=== PATIENT | male | born 1950 | race Two or more races ===

== ENCOUNTER → 2022-05-11 | Outpatient (CLI) | payer MEDICARE, OTHER ==
[~2022-05-11] VITALS: Ht 165.1 cm; Wt 72.6 kg
[~2022-05-11] MED LIST: ADENOSINE 61 MG in GIVE UN-DILUTED 0 ML IV ONE; ADENOSINE 90 MG/30 ML INJ IV ONE
== END | disposition home or self-care (01) ==
LOC: Rad HDHVI 08:50
PROVIDERS: ATTEND Internal Medicine Cardiovascular Disease
DX: I10 Essential (primary) hypertension (principal); E78.5 Hyperlipidemia, unspecified; E11.9 Type 2 diabetes mellitus without complications; Z82.49 Family history of ischemic heart disease and other diseases of the circulatory system; Z79.84 Long term (current) use of oral hypoglycemic drugs; Z79.899 Other long term (current) drug therapy
CPT/HCPCS: 78452; 93005; 96374; 96375; A9500; J0153

== ENCOUNTER → 2022-05-20 | Outpatient (CLI) | payer MEDICARE, OTHER | END | disposition home or self-care (01) | LOC: Rad HDHVI 09:55 | PROVIDERS: ATTEND Internal Medicine Cardiovascular Disease | DX: I10 Essential (primary) hypertension (principal); R42 Dizziness and giddiness; R55 Syncope and collapse; E78.5 Hyperlipidemia, unspecified | CPT/HCPCS: 93880 ==

== ENCOUNTER 2022-08-06 07:47 | Inpatient (IN) | payer MEDICARE, OTHER ==
[2022-08-03 12:07] LABS: Basophils # (auto) 0.1 10 ^3/uL (0-0.2); Basophils % (auto) 1.4 % (0.0-2.0); Eosinophils # (auto) 0.6 10 ^3/uL (0-0.8); Eosinophils % (auto) 7.5 % (0.0-7.0); Hematocrit 37.1 % (41.0-53.0); Hemoglobin 12.7 g/dL (13.5-17.5); Lymphocytes # (auto) 1.9 10 ^3/uL (0.4-5.4); Lymphocytes % (auto) 25.3 % (10.0-50.0); Mean Corpuscular Hemoglobin 30.6 pg (28.0-32.0); Mean Corpuscular Hgb Conc. 34.3 g/dL (32.0-36.0); Mean Corpuscular Volume 89.1 fL (80.0-100.0); Monocytes # (auto) 0.7 10 ^3/uL (0-1.3); Monocytes % (auto) 9.2 % (0.0-12.0); Neutrophils # (auto) 4.2 10 ^3/uL (1.6-8.6); Neutrophils % (auto) 56.6 % (37.0-80.0); Nucleated Red Blood Cells % 0.1 %; Red Blood Cells 4.16 10^6/uL (4.5-5.90); Red Cell Distribution Width 14.3 % (11.8-14.3); White Blood Cell 7.5 10^3/uL (4.4-10.8)
[2022-08-03 12:27] LABS: Partial Thromboplastin Time 29.2 sec (24.6-33.4)
[2022-08-03 12:46] LABS: Calcium 9.2 mg/dL (8.5-10.1); Potassium 4.7 mmol/L (3.5-5.1)
[2022-08-03 12:49] LABS: BUN/Creatinine Ratio 16.2 (10.0-20.0)
[~2022-08-06] VITALS: Ht 165.1 cm; Wt 70.3 kg
[2022-08-06] VITALS (9 sets, daily range): BP systolic 142–170; BP diastolic 68–97
[~2022-08-06 07:47] MED LIST changes: +ACAR50TA2 PO; +ADAL40KI SC; -ADENOSINE 61 MG in GIVE UN-DILUTED 0 ML IV ONE; -ADENOSINE 90 MG/30 ML INJ IV ONE; +AMLO-496 PO; +ASPI-543 PO; +FOLI1TAB6 PO; +GABA-339 PO; +GLIP10TA9 PO; +HYDR-4902 PO; +LEVO112T4 PO; +LISI20TA28 PO; +METF-370 PO; +METH2.5T PO; +METO25TA5 PO; +POM; +PRAV20TA3 PO
[2022-08-06] MEDS ORDERED: ANGIOMAX 250 MG VIAL IV ONE (12:34)
[2022-08-06] MEDS ORDERED: SODIUM CHL 0.9% 50 ML ONE (12:34)
[2022-08-06] MEDS ORDERED: GLYCOPYRROLATE 0.2 MG/ML 1ML VIAL ONE ×2 (12:35→12:48)
[2022-08-06] MEDS ORDERED: PHENYLEPHRINE IV 0 ML IV ONE (12:35)
[2022-08-06] MEDS ORDERED: LIDOCAINE 2%HCL (LOCAL ANESTH.) INJ 20ML MDV ONE (12:37)
[2022-08-06] MEDS ORDERED: IOHEXOL 350 MG/ML 100ML IJ ONE (12:37)
[2022-08-06] MEDS ORDERED: TICAGRELOR 90 MG TAB ONE (13:24)
[2022-08-06] MEDS ORDERED: MORPHINE SULFATE INJ 2 MG/ml SYRG IV PRN (13:45)
[2022-08-06] MEDS ORDERED: NITROGLYCERIN 0.4 MG SL TAB SL PRN (13:45)
[2022-08-06] MEDS ORDERED: HYDROcodone-ACET 5/325MG TAB PO PRN (15:30)
[2022-08-06] MEDS ORDERED: DEXTROSE (50%) 50ML SYRG IV PRN (15:45)
[2022-08-06] MEDS: ACCU-CHEK COMFORT CURVE STRIP VI SCH ×3 (17:00→22:00)
[2022-08-06] MEDS: InsuLIN REG 1unit/0.01ml Soln (100units/ml) SC SCH (17:00)
[2022-08-06] MEDS: GABAPENTIN 300 MG CAP PO SCH ×2 (18:14→20:57)
[2022-08-06] MEDS: TICAGRELOR 90 MG TAB PO SCH (20:57)
[2022-08-06] MEDS ORDERED: InsuLIN REG 1unit/0.01ml Soln (100units/ml) SC SCH (22:00)
[2022-08-06] MEDS ORDERED: cloNIDine HCL 0.1 MG TAB PO PRN (22:30)
[2022-08-07 05:00] VITALS: BP 128/69
[2022-08-07] MEDS: GABAPENTIN 300 MG CAP PO SCH (05:02)
[2022-08-07] MEDS: ACCU-CHEK COMFORT CURVE STRIP VI SCH ×2 (05:22→11:30)
[2022-08-07] MEDS: InsuLIN REG 1unit/0.01ml Soln (100units/ml) SC SCH ×2 (05:23→11:30)
[2022-08-07 06:34] LABS: Basophils # (auto) 0.1 10 ^3/uL (0-0.2); Eosinophils # (auto) 0.3 10 ^3/uL (0-0.8); Eosinophils % (auto) 3.7 % (0.0-7.0); Hematocrit 40.3 % (41.0-53.0); Hemoglobin 13.6 g/dL (13.5-17.5); Lymphocytes # (auto) 1.5 10 ^3/uL (0.4-5.4); Lymphocytes % (auto) 16.7 % (10.0-50.0); Mean Corpuscular Hemoglobin 30.2 pg (28.0-32.0); Mean Corpuscular Hgb Conc. 33.7 g/dL (32.0-36.0); Mean Corpuscular Volume 89.8 fL (80.0-100.0); Monocytes # (auto) 1.1 10 ^3/uL (0-1.3); Monocytes % (auto) 12.6 % (0.0-12.0); Neutrophils # (auto) 5.8 10 ^3/uL (1.6-8.6); Nucleated Red Blood Cells % 0.2 %; Red Blood Cells 4.49 10^6/uL (4.5-5.90); Red Cell Distribution Width 14.8 % (11.8-14.3); White Blood Cell 8.8 10^3/uL (4.4-10.8)
[2022-08-07 06:49] LABS: Potassium 4.6 mmol/L (3.5-5.1)
[2022-08-07 06:58] LABS: Albumin 3.8 g/dL (3.4-5.0); BUN/Creatinine Ratio 17.6 (10.0-20.0); Calcium 9.5 mg/dL (8.5-10.1); Total Protein 8.3 g/dL (6.4-8.2)
[2022-08-07 07:00] LABS: Bilirubin, Total 0.6 mg/dL (0.2-1.0)
[2022-08-07] MEDS ORDERED: LEVOTHYROXINE SODIUM 112 MCG TAB PO SCH (07:00)
[2022-08-07] MEDS ORDERED: METHOTREXATE 2.5 MG TAB PO SCH (08:00)
[2022-08-07 09:00] VITALS: BP 134/87
[2022-08-07] MEDS: TICAGRELOR 90 MG TAB PO SCH (09:46)
[2022-08-07] MEDS ORDERED: PRAVASTATIN SODIUM 20 MG TAB PO SCH (10:00)
[2022-08-07] MEDS ORDERED: amLODIPine BESYLATE 5 MG TAB PO SCH (10:00)
[2022-08-07] MEDS ORDERED: ASPirin-EC 81 mg tab PO SCH (10:00)
[2022-08-07] MEDS ORDERED: METOPROLOL SUCCINATE XL 50 MG TAB PO SCH (10:00)
[2022-08-07] MEDS ORDERED: FOLIC ACID 1 MG TAB PO SCH (10:00)
[2022-08-07] MEDS ORDERED: LISINOPRIL 20 MG TAB PO SCH (10:00)
[2022-08-07 12:40] VITALS: BP 121/67
[2022-08-07] MEDS ORDERED: GABAPENTIN 300 MG CAP PO SCH (14:00)
[2022-08-07 16:12] VITALS: BP 134/87
[2022-08-07 17:00] VITALS: BP 148/71
== END 2022-08-07 18:00 | disposition home or self-care (01) | DRG 36 ==
LOC: CATH 07:47 → TELE-WESTW 13:34
PROVIDERS: ADMIT Internal Medicine Cardiovascular Disease; ATTEND Internal Medicine Cardiovascular Disease
PROC: 037L3DZ Dilation of Left Internal Carotid Artery with Intraluminal Device, Percutaneous Approach (ICD-10-PCS; principal; 2022-08-06)
PROC: B31C1ZZ Fluoroscopy of Bilateral External Carotid Arteries using Low Osmolar Contrast (ICD-10-PCS; 2022-08-06)
PROC: B31G1ZZ Fluoroscopy of Bilateral Vertebral Arteries using Low Osmolar Contrast (ICD-10-PCS; 2022-08-06)
PROC: B3181ZZ Fluoroscopy of Bilateral Internal Carotid Arteries using Low Osmolar Contrast (ICD-10-PCS; 2022-08-06)
PROC: B3151ZZ Fluoroscopy of Bilateral Common Carotid Arteries using Low Osmolar Contrast (ICD-10-PCS; 2022-08-06)
DX: I65.22 Occlusion and stenosis of left carotid artery (principal); E78.5 Hyperlipidemia, unspecified; I10 Essential (primary) hypertension; E11.40 Type 2 diabetes mellitus with diabetic neuropathy, unspecified; J44.9 Chronic obstructive pulmonary disease, unspecified; Z82.49 Family history of ischemic heart disease and other diseases of the circulatory system; Z86.73 Personal history of transient ischemic attack (TIA), and cerebral infarction without residual deficits; Z87.891 Personal history of nicotine dependence; Z88.0 Allergy status to penicillin
CPT/HCPCS: 36224; 36227; 36415; 80048; 80053; 82962; 85025; 85610; 85730; 96374; 96375; G0378

== ENCOUNTER 2022-09-21 15:55 | Emergency (ER) | payer MEDICARE, OTHER ==
[~2022-09-21] VITALS: Ht 165.1 cm; Wt 73.6 kg
[~2022-09-21 15:55] MED LIST changes: -AMLO-496 PO; +AMLO1TAB23 PO; +FOLI-119 PO; -FOLI1TAB6 PO; -LISI20TA28 PO; +LISI20TA56 PO
[2022-09-21 16:53] LABS: Basophils # (auto) 0.1 10 ^3/uL (0-0.2); Basophils % (auto) 1.6 % (0.0-2.0); Eosinophils # (auto) 0.4 10 ^3/uL (0-0.8); Eosinophils % (auto) 6.4 % (0.0-7.0); Hematocrit 34.8 % (41.0-53.0); Hemoglobin 11.4 g/dL (13.5-17.5); Lymphocytes # (auto) 1.2 10 ^3/uL (0.4-5.4); Lymphocytes % (auto) 20.1 % (10.0-50.0); Mean Corpuscular Hemoglobin 30.1 pg (28.0-32.0); Mean Corpuscular Hgb Conc. 32.9 g/dL (32.0-36.0); Mean Corpuscular Volume 91.6 fL (80.0-100.0); Monocytes # (auto) 0.8 10 ^3/uL (0-1.3); Monocytes % (auto) 12.8 % (0.0-12.0); Neutrophils # (auto) 3.6 10 ^3/uL (1.6-8.6); Neutrophils % (auto) 59.1 % (37.0-80.0); Nucleated Red Blood Cells % 0.1 %; Red Blood Cells 3.79 10^6/uL (4.5-5.90); Red Cell Distribution Width 14.9 % (11.8-14.3); White Blood Cell 6.1 10^3/uL (4.4-10.8)
[2022-09-21 17:10] LABS: Albumin 4.1 g/dL (3.4-5.0); Potassium 5.1 mmol/L (3.5-5.1)
[2022-09-21 17:14] LABS: BUN/Creatinine Ratio 14.8 (10.0-20.0); Bilirubin, Total 0.2 mg/dL (0.2-1.0); Total Protein 8.2 g/dL (6.4-8.2)
[2022-09-21 19:40] VITALS: BP 154/92
== END 2022-09-21 19:42 | disposition home or self-care (01) ==
LOC: ER 15:55
DX: R53.1 Weakness (principal); E11.9 Type 2 diabetes mellitus without complications; E78.5 Hyperlipidemia, unspecified; I10 Essential (primary) hypertension; Z88.0 Allergy status to penicillin; Z79.899 Other long term (current) drug therapy; Z90.89 Acquired absence of other organs; Z98.890 Other specified postprocedural states
CPT/HCPCS: 36415; 80053; 84484; 85025; 93005

== ENCOUNTER → 2023-01-11 | Outpatient (CLI) | payer MEDICARE, OTHER | END | disposition home or self-care (01) | LOC: Rad HDHVI 12:56 | PROVIDERS: ATTEND Internal Medicine Cardiovascular Disease | DX: L98.499 Non-pressure chronic ulcer of skin of other sites with unspecified severity (principal) | CPT/HCPCS: 93925 ==

== ENCOUNTER → 2023-02-15 | Outpatient (CLI) | payer MEDICARE, OTHER ==
[~2023-02-15] MED LIST changes: +CLOP75TA28 PO; +EMPA1TAB3 PO; +PREG50CA PO
[2023-02-15 10:04] VITALS: BP 151/66; PULSE 68; RESP 18; O2SAT 100
[2023-02-15 10:18] VITALS: BP 157/70; PULSE 66; RESP 18; O2SAT 100
== END | disposition home or self-care (01) ==
LOC: CHF HDHVI 09:51
PROVIDERS: ATTEND Internal Medicine Cardiovascular Disease
DX: Z01.818 Encounter for other preprocedural examination (principal)
CPT/HCPCS: 93005; G0463

== ENCOUNTER 2023-02-18 06:47 | Day surgery (SDC) | payer MEDICARE, OTHER ==
[2023-02-15 10:41] LABS: Basophils # (auto) 0 10 ^3/uL (0-0.2); Basophils % (auto) 0.3 % (0.0-2.0); Eosinophils # (auto) 0.5 10 ^3/uL (0-0.8); Eosinophils % (auto) 6.1 % (0.0-7.0); Hematocrit 37.5 % (41.0-53.0); Hemoglobin 12.3 g/dL (13.5-17.5); Lymphocytes # (auto) 1.8 10 ^3/uL (0.4-5.4); Lymphocytes % (auto) 22.8 % (10.0-50.0); Mean Corpuscular Hemoglobin 29.3 pg (28.0-32.0); Mean Corpuscular Hgb Conc. 32.8 g/dL (32.0-36.0); Mean Corpuscular Volume 89.4 fL (80.0-100.0); Monocytes # (auto) 0.9 10 ^3/uL (0-1.3); Monocytes % (auto) 11.9 % (0.0-12.0); Neutrophils # (auto) 4.7 10 ^3/uL (1.6-8.6); Neutrophils % (auto) 58.9 % (37.0-80.0); Nucleated Red Blood Cells % 0.1 %; Red Blood Cells 4.19 10^6/uL (4.5-5.90); Red Cell Distribution Width 13.9 % (11.8-14.3)
[2023-02-15 11:44] LABS: Calcium 9.6 mg/dL (8.7-10.4); Chloride 103 mmol/L (98-107); Potassium 4.9 mmol/L (3.5-5.1); Sodium 135 mmol/L (136-145)
[2023-02-15 11:45] LABS: Anion Gap 8 (5-15); Carbon Dioxide 24 mmol/L (20-30)
[2023-02-15 11:49] LABS: Glucose 203 mg/dL (74-106)
[2023-02-15 11:50] LABS: BUN/Creatinine Ratio 12.5 (10.0-20.0); Blood Urea Nitrogen 19 mg/dL (9-23)
[2023-02-15 12:07] LABS: INR 1.03 (0.9-1.15); Partial Thromboplastin Time 30.7 SEC (24.5-34.5); Prothrombin Time 10.8 sec (9.3-11.8)
[~2023-02-18] VITALS: Ht 165.1 cm; Wt 72.6 kg
[2023-02-18] VITALS (8 sets, daily range): BP systolic 138–153; BP diastolic 70–93; PULSE 76–100; RESP 12–21; O2SAT 96–100
[~2023-02-18 06:47] MED LIST changes: -GABA-339 PO; -METH2.5T PO; -POM
[2023-02-18] MEDS ORDERED: IOHEXOL 350 MG/ML 100ML IJ ONE (08:29)
[2023-02-18] MEDS ORDERED: LIDOCAINE 2%HCL (LOCAL ANESTH.) INJ 20ML MDV ONE (08:29)
[2023-02-18] MEDS ORDERED: ANGIOMAX 250 MG VIAL IV ONE (08:38)
[2023-02-18] MEDS ORDERED: MIDAZOLAM HCL 2MG/2ML 2ml VIAL (1mg/ml) ONE (08:39)
[2023-02-18] MEDS ORDERED: SODIUM CHL 0.9% 50 ML ONE (08:39)
[2023-02-18] MEDS ORDERED: fentaNYL CITRATE 100 MCG/2 ML VL ONE (08:39)
[2023-02-18] MEDS ORDERED: CLOPIDOGREL 300 MG TAB ONE (10:34)
== END 2023-02-18 12:44 | disposition home or self-care (01) ==
LOC: CATH 06:47
PROVIDERS: ATTEND Internal Medicine Cardiovascular Disease
DX: I70.213 Atherosclerosis of native arteries of extremities with intermittent claudication, bilateral legs (principal); I10 Essential (primary) hypertension; E78.5 Hyperlipidemia, unspecified; Z79.899 Other long term (current) drug therapy
CPT/HCPCS: 36415; 75716; 80048; 85025; 85610; 85730; C1760; C1769; C1887; C1894; C9764; C9765; C9772; J0583; J1644; J2250; J3010; Q9967

== ENCOUNTER → 2023-03-08 | Outpatient (CLI) | payer MEDICARE, OTHER | END | disposition home or self-care (01) | LOC: Rad HDHVI 13:49 | PROVIDERS: ATTEND Internal Medicine Cardiovascular Disease | DX: I70.202 Unspecified atherosclerosis of native arteries of extremities, left leg (principal); I10 Essential (primary) hypertension | CPT/HCPCS: 93926 ==

== ENCOUNTER 2023-06-17 11:29 | Inpatient (IN) | payer MEDICARE, OTHER ==
[~2023-06-17] VITALS: Ht 165.1 cm; Wt 72.5 kg
[2023-06-17 12:19] VITALS: PULSE 105; RESP 21; O2SAT 96
[2023-06-17 12:22] LABS: Basophils # (auto) 0 10 ^3/uL (0-0.2); Basophils % (auto) 0.2 % (0.0-2.0); Eosinophils # (auto) 0.6 10 ^3/uL (0-0.8); Eosinophils % (auto) 7.2 % (0.0-7.0); Hematocrit 37.2 % (41.0-53.0); Hemoglobin 12.2 g/dL (13.5-17.5); Lymphocytes # (auto) 0.3 10 ^3/uL (0.4-5.4); Lymphocytes % (auto) 3.4 % (10.0-50.0); Mean Corpuscular Hemoglobin 28.5 pg (28.0-32.0); Mean Corpuscular Hgb Conc. 32.7 g/dL (32.0-36.0); Mean Corpuscular Volume 87.2 fL (80.0-100.0); Monocytes # (auto) 0.9 10 ^3/uL (0-1.3); Monocytes % (auto) 10.3 % (0.0-12.0); Neutrophils # (auto) 6.9 10 ^3/uL (1.6-8.6); Neutrophils % (auto) 78.9 % (37.0-80.0); Nucleated Red Blood Cells % 0.1 %; Red Blood Cells 4.26 10^6/uL (4.5-5.90); Red Cell Distribution Width 14.5 % (11.8-14.3); White Blood Cell 8.8 10^3/uL (4.4-10.8)
[2023-06-17 12:41] LABS: Alanine Aminotransferase 24 U/L (7-40); Albumin 4.6 g/dL (3.2-4.8); Alkaline Phosphatase 53 U/L (46-116); Anion Gap 8 (5-15); Aspartate Aminotransferase 28 U/L (13-40); BUN/Creatinine Ratio 8.9 (10.0-20.0); Blood Alcohol < 3.0 mg/dL (<10); Blood Urea Nitrogen 27 mg/dL (9-23); Calcium 9.3 mg/dL (8.5-10.1); Carbon Dioxide 23 mmol/L (20-30); Chloride 102 mmol/L (98-107); Glucose 109 mg/dL (74-106); Potassium 5.1 mmol/L (3.5-5.1); Sodium 133 mmol/L (136-145)
[2023-06-17 12:42] LABS: Salicylate < 3.0 mg/dL (2.8-20.0); Total Protein 8.2 g/dL (5.7-8.2)
[2023-06-17 12:46] LABS: Urine Bacteria NONE SEEN /hpf (None Seen); Urine Blood TRACE /uL (Negative); Urine Clarity Clear (Clear); Urine Hyaline Cast FEW /lpf (0 - 2); Urine Protein, UAD TRACE (Negative); Urine Specific Gravity 1.008 (1.001-1.035); Urine Urobilinogen Normal (Negative); Urine WBC <1 /hpf (0 - 3); Urine pH 5.5 (5.0-8.0)
[2023-06-17 12:47] LABS: Amphetamine Screen, Urine Neg (NEGATIVE); Barbiturate Scree,Urine Neg (NEGATIVE); Benzodiazephine Screen, Urine Neg (NEGATIVE); Cocaine Screen, Urine Neg (NEGATIVE)
[2023-06-17 12:48] LABS: Cannabinoid Screen, Urine Neg (NEGATIVE); Opiate Scree,Urine Neg (NEGATIVE); Phencyclidine Screen, Urine Neg (NEGATIVE)
[2023-06-17 12:54] LABS: Urine Color Straw (Yellow)
[2023-06-17 13:45] LABS: Bilirubin, Total 0.2 mg/dL (0.2-1.0)
[2023-06-17] MEDS: ACETAMINOPHEN 500 MG TAB PO ONE (13:57)
[2023-06-17] MEDS: SODIUM CHLORIDE 0.9% 1,000 ML IV ONE ×2 (14:04→15:12)
[2023-06-17] MEDS ORDERED: NITROGLYCERIN 0.4 MG SL TAB SL PRN (15:30)
[2023-06-17] MEDS ORDERED: HYDROcodone-ACET 5/325MG TAB PO PRN ×2 (15:30→18:00)
[2023-06-17] MEDS ORDERED: MORPHINE SULFATE INJ 2 MG/ml SYRG IV PRN (15:30)
[2023-06-17] MEDS ORDERED: DOCUSATE SOD 100 MG CAP PO PRN (15:30)
[2023-06-17] MEDS ORDERED: FUR20T PO (15:49)
[2023-06-17] MEDS ORDERED: VANCOMYCIN PER PHARMACY 0 MG IV SCH (16:00)
[2023-06-17] MEDS: SODIUM CHLORIDE 0.9% 1,000 ML IV SCH (16:06)
[2023-06-17] MEDS: METOPROLOL TARTRATE 25 MG TAB PO ONE (16:16)
[2023-06-17 16:18] LABS: Free T4 (Free Thyroxine) 1.41 ng/dL (0.89-1.76)
[2023-06-17 16:19] LABS: Free T3 2.52 pg/mL (2.3-4.2)
[2023-06-17] MEDS: VANCOMYCIN 1GM/200ML 200 ML IV ONE (16:35)
[2023-06-17 19:40] VITALS: PULSE 120; RESP 18; O2SAT 96
[2023-06-17] MEDS: ACETAMINOPHEN 325 MG TAB PO PRN (19:53)
[2023-06-17] MEDS: ONDANSETRON HCL 4 MG/2 ML VIAL IV PRN (20:53)
[2023-06-17] MEDS ORDERED: metFORMIN HYDROCHLORIDE 500 MG TAB PO SCH (22:00)
[2023-06-17] MEDS ORDERED: PATIENTS OWN MEDICATION (Pregabalin (Lyrica) 1 CAP) PO SCH (22:00)
[2023-06-17] MEDS: PREGABALIN 25 MG CAP PO SCH (23:35)
[2023-06-18] MEDS: LEVOTHYROXINE SODIUM 112 MCG TAB PO SCH (05:54)
[2023-06-18 06:13] LABS: Basophils # (auto) 0.1 10 ^3/uL (0-0.2); Basophils % (auto) 0.4 % (0.0-2.0); Eosinophils # (auto) 0.2 10 ^3/uL (0-0.8); Eosinophils % (auto) 1.2 % (0.0-7.0); Hemoglobin 12.5 g/dL (13.5-17.5); Lymphocytes # (auto) 0.5 10 ^3/uL (0.4-5.4); Lymphocytes % (auto) 3.7 % (10.0-50.0); Mean Corpuscular Hemoglobin 28.2 pg (28.0-32.0); Mean Corpuscular Volume 88.2 fL (80.0-100.0); Monocytes # (auto) 1.1 10 ^3/uL (0-1.3); Monocytes % (auto) 8.1 % (0.0-12.0); Neutrophils # (auto) 11.5 10 ^3/uL (1.6-8.6); Neutrophils % (auto) 86.6 % (37.0-80.0); Red Blood Cells 4.42 10^6/uL (4.5-5.90); Red Cell Distribution Width 14.8 % (11.8-14.3); White Blood Cell 13.2 10^3/uL (4.4-10.8)
[2023-06-18 06:30] LABS: Alanine Aminotransferase 31 U/L (7-40); Albumin 4.2 g/dL (3.2-4.8); Alkaline Phosphatase 46 U/L (46-116); Anion Gap 15 (5-15); Aspartate Aminotransferase 60 U/L (13-40); BUN/Creatinine Ratio 13.3 (10.0-20.0); Blood Urea Nitrogen 31 mg/dL (9-23); Calcium 8.4 mg/dL (8.7-10.4); Carbon Dioxide 18 mmol/L (20-30); Chloride 103 mmol/L (98-107); Glucose 118 mg/dL (74-106); Potassium 4.6 mmol/L (3.5-5.1); Sodium 136 mmol/L (136-145)
[2023-06-18 06:31] LABS: Bilirubin, Total 0.3 mg/dL (0.2-1.0); Total Protein 7.3 g/dL (5.7-8.2)
[2023-06-18 08:00] VITALS: PULSE 118; PULSE 126; RESP 18; O2SAT 95
[2023-06-18 09:00] VITALS: BP 130/57; PULSE 124; RESP 16; TEMP 100.4; O2SAT 96
[2023-06-18] MEDS: ASPirin-EC 81 mg tab PO SCH (09:18)
[2023-06-18] MEDS: CLOPIDOGREL BISULFATE 75 MG TAB PO SCH (09:19)
[2023-06-18] MEDS: FUROSEMIDE 20 MG TAB PO SCH (09:19)
[2023-06-18] MEDS: PANTOPRAZOLE 40 MG TAB PO SCH (09:23)
[2023-06-18] MEDS: METOPROLOL TARTRATE 25 MG TAB PO SCH (09:24)
[2023-06-18] MEDS: FOLIC ACID 1 MG TAB PO SCH (09:24)
[2023-06-18] MEDS: LISINOPRIL 20 MG TAB PO SCH (09:24)
[2023-06-18] MEDS: amLODIPine BESYLATE 5 MG TAB PO SCH (09:25)
[2023-06-18] MEDS: ENOXAPARIN SOD 30 MG/0.3 ML SYRINGE SC SCH (09:27)
[2023-06-18] MEDS: PRAVASTATIN SODIUM 20 MG TAB PO SCH (09:37)
[2023-06-18] MEDS ORDERED: PATIENTS OWN MEDICATION (Folic Acid 1 MG) PO SCH (10:00)
[2023-06-18] MEDS ORDERED: PATIENTS OWN MEDICATION (Amlodipine Besylate 1 TAB) PO SCH (10:00)
[2023-06-18] MEDS ORDERED: SILV1CRE82 TOP (11:04)
[2023-06-18 13:00] VITALS: BP 109/40; PULSE 108; RESP 12; TEMP 98.9; O2SAT 92
[2023-06-18] MEDS: VANCOMYCIN 1GM/200ML 200 ML IV ONE (15:52)
[2023-06-18 17:00] VITALS: BP 101/65; PULSE 105; RESP 16; TEMP 98.7; O2SAT 98
[2023-06-18 19:30] VITALS: PULSE 120; RESP 18; O2SAT 95
[2023-06-18 22:00] VITALS: BP 157/68; PULSE 128; RESP 20; TEMP 98.4; O2SAT 98
[2023-06-19] VITALS (7 sets, daily range): BP systolic 118–158; BP diastolic 46–66; PULSE 60–118; RESP 14–20; TEMP 97.5–98.1; O2SAT 94–99
[2023-06-19] MEDS: LEVOTHYROXINE SODIUM 88 MCG TAB PO SCH (06:23)
[2023-06-19 10:00] LABS: Chloride 104 mmol/L (98-107); Potassium 4.8 mmol/L (3.5-5.1); Sodium 133 mmol/L (136-145)
[2023-06-19 10:01] LABS: Anion Gap 13 (5-15); Calcium 8.7 mg/dL (8.5-10.1); Carbon Dioxide 16 mmol/L (20-30)
[2023-06-19 10:06] LABS: BUN/Creatinine Ratio 13.6 (10.0-20.0); Blood Urea Nitrogen 31 mg/dL (9-23); Glucose 186 mg/dL (74-106)
[2023-06-19] MEDS: SODIUM BICARBONATE 650 MG TAB PO SCH (10:18)
[2023-06-19] MEDS: VANCOMYCIN 500 MG in D5W 5% 100 ML IV ONE (18:40)
[2023-06-20] VITALS (7 sets, daily range): BP systolic 130–156; BP diastolic 43–79; PULSE 40–111; RESP 14–18; TEMP 97.3–98.6; O2SAT 93–100
[2023-06-20] MEDS: SODIUM CHLORIDE 0.9% 1,000 ML IV SCH (13:23)
[2023-06-20] MEDS: VANCOMYCIN 500 MG in D5W 5% 100 ML IV ONE (14:29)
[2023-06-21] VITALS (7 sets, daily range): BP systolic 124–145; BP diastolic 59–77; PULSE 50–130; RESP 14–20; TEMP 97.6–98.6; O2SAT 94–100
[2023-06-21 05:09] LABS: Calcium 8.9 mg/dL (8.7-10.4)
[2023-06-21 05:16] LABS: Albumin 3.6 g/dL (3.2-4.8)
[2023-06-21] MEDS: VANCOMYCIN 1GM/200ML 200 ML IV SCH (16:15)
[2023-06-21] MEDS: AMIODARONE HCL 200 MG TAB PO SCH (16:16)
[2023-06-22] VITALS (10 sets, daily range): BP systolic 126–148; BP diastolic 61–78; PULSE 78–105; RESP 11–20; TEMP 97.1–97.9; O2SAT 92–100
[2023-06-22 09:56] LABS: INR 1.08 (0.9-1.15); Partial Thromboplastin Time 33.3 SEC (24.5-34.5); Prothrombin Time 11.3 sec (9.3-11.8)
[2023-06-22] MEDS: LIDOCAINE 2%HCL (LOCAL ANESTH.) INJ 20ML MDV ONE (09:56)
[2023-06-22] MEDS: IODIXANOL 320MG/ML 100ML BTL IV ONE ×2 (09:57→11:25)
[2023-06-22] MEDS: HEPARIN IN NS 1000Units/500mL 1,500 ML ONE (09:57)
[2023-06-22] MEDS: ENOXAPARIN SOD 40 MG/0.4 ML SYRINGE SC SCH (10:00)
[2023-06-22] MEDS: MIDAZOLAM HCL 2MG/2ML 2ml VIAL (1mg/ml) ONE (10:05)
[2023-06-22] MEDS: ANGIOMAX 250 MG VIAL IV ONE (10:05)
[2023-06-22] MEDS: fentaNYL CITRATE 100 MCG/2 ML VL ONE (10:05)
[2023-06-22] MEDS: SODIUM CHL 0.9% 50 ML ONE (10:06)
[2023-06-22] MEDS: ASPirin 81 mg TAB ONE (12:17)
[2023-06-22] MEDS: CLOPIDOGREL BISULFATE 75 MG TAB ONE (12:17)
[2023-06-23 05:00] VITALS: BP 129/63; PULSE 101; RESP 18; TEMP 97.6; O2SAT 97
[2023-06-23 08:00] VITALS: PULSE 104; PULSE 97; RESP 16; O2SAT 95
[2023-06-23 08:20] VITALS: BP 132/66; PULSE 104; RESP 16; TEMP 98; O2SAT 95
[2023-06-23 12:20] VITALS: BP 145/64; PULSE 87; RESP 16; TEMP 98.4; O2SAT 99
[2023-06-23 15:38] VITALS: BP 145/64; PULSE 87; RESP 16; TEMP 98.4; O2SAT 99
== END 2023-06-23 17:30 | disposition home or self-care (01) | DRG 324 ==
LOC: ER 11:29 → EDBD 11:29 → TELE 15:31 → TELE-CENTR 22:10
PROVIDERS: ADMIT Nurse Practitioner Family; ATTEND Internal Medicine Cardiovascular Disease
PROC: 4A023N7 Measurement of Cardiac Sampling and Pressure, Left Heart, Percutaneous Approach (ICD-10-PCS; principal; 2023-06-22)
PROC: 02F03ZZ Fragmentation in Coronary Artery, One Artery, Percutaneous Approach (ICD-10-PCS; 2023-06-22)
PROC: 027135Z Dilation of Coronary Artery, Two Arteries with Two Drug-eluting Intraluminal Devices, Percutaneous Approach (ICD-10-PCS; 2023-06-22)
PROC: B2161ZZ Fluoroscopy of Right and Left Heart using Low Osmolar Contrast (ICD-10-PCS; 2023-06-22)
PROC: B2111ZZ Fluoroscopy of Multiple Coronary Arteries using Low Osmolar Contrast (ICD-10-PCS; 2023-06-22)
DX: I47.20 Ventricular tachycardia, unspecified (principal); L03.115 Cellulitis of right lower limb; N17.9 Acute kidney failure, unspecified; I10 Essential (primary) hypertension; E78.5 Hyperlipidemia, unspecified; I25.10 Atherosclerotic heart disease of native coronary artery without angina pectoris; R00.8 Other abnormalities of heart beat; E03.9 Hypothyroidism, unspecified; E05.80 Other thyrotoxicosis without thyrotoxic crisis or storm; I48.0 Paroxysmal atrial fibrillation; E11.51 Type 2 diabetes mellitus with diabetic peripheral angiopathy without gangrene; E11.22 Type 2 diabetes mellitus with diabetic chronic kidney disease; E11.40 Type 2 diabetes mellitus with diabetic neuropathy, unspecified; E78.00 Pure hypercholesterolemia, unspecified; E86.9 Volume depletion, unspecified; E87.5 Hyperkalemia; N18.31 Chronic kidney disease, stage 3a; I12.9 Hypertensive chronic kidney disease with stage 1 through stage 4 chronic kidney disease, or unspecified chronic kidney disease; I49.5 Sick sinus syndrome; Z82.49 Family history of ischemic heart disease and other diseases of the circulatory system; Z79.02 Long term (current) use of antithrombotics/antiplatelets; Z88.0 Allergy status to penicillin; Z83.3 Family history of diabetes mellitus; Z95.5 Presence of coronary angioplasty implant and graft
CPT/HCPCS: 36415; 70450; 71045; 73590; 76775; 80048; 80053; 80069; 80202; 80307; 80320; 80329; 81001; 82565; 82962; 83036; 83605; 83615; 83735; 84439; 84443; 84481; 84484; 85025; 85610; 85730; 87040; 87205; 92928; 93005; 93458; 97110; 97116; 97163; 97530; 99152; 99291; G0378; J2250; J2405; J7060; Q9967